=== PATIENT | female | born 1960 | race Caucasian/White ===

== ENCOUNTER 2017-04-03 20:07 | Outpatient (CLI) | payer BC ==
[2017-04-03 20:29] LABS: Bilirubin Negative (Negative); Blood, Urine Trace (Negative); Clarity Clear (Clear); Glucose, Urine (Dipstick) Negative (Negative); Leukocyte Small (Negative); Nitrite Negative (Negative); Protein, Urine (Dipstick) Negative (Neg-Trace); Urobilinogen 0.2 mg/dL (0.2-1.0); pH, Urine 5.5 (5.0-9.0)
[2017-04-03 21:09] LABS: Bacteria/HPF Rare-Few HPF (None Seen); RBC/HPF 0-3 HPF (0-3); Specific Gravity, Urine 1.014 (1.002-1.036); Squamous Epithelial 0-3 HPF (0-3)
== END 2017-04-03 20:08 | disposition home or self-care (01) ==
LOC: NAV LAB 20:07
PROVIDERS: ATTEND Family Medicine
DX: N30.00 Acute cystitis without hematuria (principal)
CPT/HCPCS: 81001; 87086

== ENCOUNTER 2020-06-21 13:54 | Outpatient (CLI) | payer BC ==
--- NOTE | 2020-06-21 14:09 | RAD ---
XR Shoulder Lt 3 View STANDARD History: Shoulder pain Comparison: None. Findings: Visualized ribs are intact. Prominent nutrient foramen through the coracoid base. No acute fracture or malalignment. Small osteophytes of the humeral head/neck junction. Impression: No acute osseous abnormality. Moderate degenerative change.
== END 2020-06-21 13:55 | disposition home or self-care (01) ==
LOC: NAV RAD 13:54
PROVIDERS: ATTEND Family Medicine
DX: M75.82 Other shoulder lesions, left shoulder (principal); M19.012 Primary osteoarthritis, left shoulder